=== PATIENT | female | born 1955 | race Caucasian/White ===

== ENCOUNTER → 2016-07-12 | Outpatient (CLI) | payer OTHER ==
--- NOTE | 2016-07-14 09:08 | RADIOLOGY REPORT PS360 ---
DIG MAMM-SCREEN [facility] W/CAD CAD Screening COMPARISON: Digital mammograms 09/07/2013 and analog mammograms 03/30/1999 INDICATION: There is no personal or family history of breast cancer. There is been previous cyst aspiration and biopsy on each breast. TECHNIQUE: Standard CC and MLO images were obtained. R2 CAD reviewed. FINDINGS: Moderate diffuse heterogenic fibroglandular densities are seen throughout both breasts most prominent in the upper outer quadrants. Again noted is a small collection of microcalcifications upper outer quadrant right breast which are stable and unchanged from the previous exam August 2013. There is a small cluster of benign-appearing calcifications outer quadrant left breast. There is no suspicious lesion and no suspicious microcalcifications. IMPRESSION: Moderate diffuse breast density with no suspicious lesion seen recommend yearly follow-up BI-RADS CATEGORY: 2_Benign RECOMMENDED FOLLOWUP: 12M 12 MONTH FOLLOW-UP (A letter has been sent to the patient regarding results of the study.)
--- NOTE | 2016-09-03 12:34 | RADIOLOGY REPORT PS360 ---
EXAM: CT LUNG LOW DOSE WO CONTRAST COMPARISON: No prior CT studies. Only a previous 2 view chest 07/12/2014 HISTORY: Smoker 1 pack per day 44 years = 45 pack-year. Currently smoking. Asymptomatic FINDINGS: No highly suspicious nodule or mass Indeterminate Lung Nodules(Category3): Small 5 mm x 6 mm maximum indeterminate subpleural nodule posterior aspect superior segment right lower lobe.(axial slice 33 sagittal 37). Probable benign 6 month follow-upBut more likely benign. Indeterminate/Non-actionable Nodules(Category2): None Benign nodules(Category1) Small 6 mm calcified granuloma just above the right hemidiaphragm at right lower lobe Tiny 4 mm faintly calcified granuloma RML axial image 3611 smaller 2 mm subpleural nodule just anterior to this RML LUNG PARENCHYMA Emphysema: Mild centrilobular emphysematous changes A few small scattered blebs noted bilaterally. Most notable left is at the posterior periphery left lung base measuring 11 mm subpleural. There is also a similar sized bleb just lateral to the left suprahilar region. Faint developing blebs of posterior lung saunders likely evident along with some mild groundglass opacity, may reflect atelectasis. Cannot exclude some early chronic changes. Airways disease: Upper normal airway thickness at the infrahilar regions. No intraluminal no endobronchial lesion . Fibrosis: There may be some very subtle coarsening markings and fibrotic changes but these are negligible. OTHER ANATOMIC REGIONS Lymph Nodes: No enlarged lymph nodes evident. Scattered small nodes are present in the mediastinum . Moderate size Dense calcified hilar nodes on right reflect old granulomatous this disease. Pleura: Unremarkable no pleural lesions nor effusion Cardiac:. Minimal coronary calcification LAD. Heart upper normal in size. Osseous.: T-spine intact chest wall ribs unremarkable OTHER FINDINGS Uppermost abdomen. Cholecystectomy.. Postsurgical changes at right renal fossa.. Probable right nephrectomy. Correlation required. Question small hiatal hernia IMPRESSION:-------- 1. No suspicious mass lesions or lung mnodules. Scant early emphysematous changes. With minimal bleb formation bilateral 2. Lung RADS Category 3. Indeterminate lung nodule right midlung Indeterminate subpleural nodule, (posterior aspect superior segment RUL) 6 mm mm size. Most likely benign but Would benefit from 6 month follow-up to confirm stability 3. Old granulomatous disease Small Benign calcified granulomas elsewhere right lung. Associated calcified right hilar nodes 2. Other minor observations in text. No postsurgical changes right renal fossa. Is a history of right nephrectomy RECOMMENDATIONS: 6 monthd LDCT follow-up ----- TECHNIQUE: The exam was performed on a [employer] [address] scanner using 3.0 mGy CTDI. A low dose helical CT CHEST was performed on a multi-detector scanner The LDCT was performed in a facility that meets the criteria for the screening program. Data regarding this exam was submitted to ACR which is an approved registry. The order for this exam indicates that it came as a result of a lung cancer screening counseling shard decision-making visit that included all the elements required of such a visit including smoking cessation. The radiologist interpreting this exam meets the CMS criteria for the LDCT lung cancer screening program. The exam is reported using the Lung-RADS classification scale and reported to the ACR registry. NOTE: This study was performed for the specific purposes of lung cancer screening and is not an alternative to diagnostic chest CT. RADIATION DOSE: CTDI vol(CT dose Index-volume) = mGy DLP (Dose Length Product) = mGy-cm
== END ==
LOC: RAD 14:52
DX: Z12.31 Encounter for screening mammogram for malignant neoplasm of breast (principal); Z87.891 Personal history of nicotine dependence; Z12.2 Encounter for screening for malignant neoplasm of respiratory organs
CPT/HCPCS: G0202; G0297